=== PATIENT | male | born 1995 | race Caucasian/White ===

== ENCOUNTER 2019-05-30 18:09 | Emergency (ER) | payer OTHER ==
[~2019-05-30] VITALS: Ht 175.2 cm; Wt 61.2 kg
[~2019-05-30 18:09] MED LIST: ATARAX25 MG PO; CLARITIN10 MG PO; KENALOG0.5% TP; MINOCYCLINE100 MG PO; OMEPRAZOLE MAGN20 M1 PO; ZITHROMAX Z PA250 MG PO
[2019-05-30 18:12] VITALS: BP 126/81
[2019-05-30 19:06] LABS: HEMATOCRIT 49.9 % (42.0-52.0); MEAN CELL VOLUME 85.6 fl (80.0-94.0); MEAN CORPUSCULAR HGB 29.2 pg (27.0-31.0); MEAN CORPUSCULAR HGB CONC 34.1 g/dl (33.0-37.0); MEAN PLATELET VOLUME 9.7 fl (9.6-12.3); PLATELET COUNT AUTOMATED 315 10*3/uL (130-400); RED BLOOD COUNT 5.83 10*6/uL (4.50-5.90); WHITE BLOOD COUNT 17.1 10*3/uL (4.8-10.8)
[2019-05-30 19:21] LABS: ALBUMIN 4.4 gm/dl (3.1-4.5); ALKALINE PHOSPHATASE 113 U/L (45-117); BUN 12 mg/dl (7-24); CHLORIDE 106 mmol/L (98-107); CREATININE 1.15 mg/dL (0.70-1.30); SGOT/AST 35 IU/L (3-35); SGPT/ALT 81 U/L (12-78); SODIUM 139 mmol/L (136-145)
[2019-05-30 19:30] LABS: PLATELET SUFFICIENCY NORMAL (NORMAL); TOTAL CELLS COUNTED 100 #CELLS
== END 2019-05-30 21:20 | disposition home or self-care (01) ==
LOC: ED 18:09
PROVIDERS: Nurse Practitioner
DX: A08.4 Viral intestinal infection, unspecified (principal); R11.2 Nausea with vomiting, unspecified; R19.7 Diarrhea, unspecified; Z88.8 Allergy status to other drugs, medicaments and biological substances; Z79.899 Other long term (current) drug therapy